=== PATIENT | female | born 1950 | race Caucasian/White ===

== ENCOUNTER → 2016-11-14 | Outpatient (CLI) | payer BC, OTHER ==
--- NOTE | 2016-11-14 10:34 | REPMRS ---
Patient History The patient states she had a clinical breast exam in Patient is postmenopausal and is nulliparous. Family history of prostate cancer in father at age 50 or over and prostate cancer in paternal grandfather. Digital Woman Screen Mammo: November 14, 2016 - Exam #: [id number] Bilateral CC and MLO view(s) were taken. Technologist: Kate Cohen, Technologist Prior study comparison: November 16, 2015, digital woman screen mammo performed at [facility]. November 10, 2014, digital woman screen mammo performed at [facility]. FINDINGS: The breast tissue is heterogeneously dense. This may lower the sensitivity of mammography. There has been no change in the appearance of the mammogram from the prior studies. There is a moderate amount of residual fibroglandular tissue which is fairly symmetric. There is no interval development of dominant mass, areas of architectural distortion, or clustered microcalcification typical of malignancy. ASSESSMENT: BI-RADS/ACR category 1 mammogram. Negative. Recommendation Routine screening mammogram in 1 year (for women over age 40). This mammogram was interpreted with the aid of an FDA-approved computer-aided dectection system. Electronically Signed By: Arsenio Blackwood MD 11/14/16 [id number]
== END ==
LOC: M WHC 08:50
PROVIDERS: ATTEND Nurse Practitioner Family
DX: Z12.31 Encounter for screening mammogram for malignant neoplasm of breast (principal); Z78.0 Asymptomatic menopausal state; Z80.42 Family history of malignant neoplasm of prostate

== ENCOUNTER → 2018-03-13 | Outpatient (CLI) | payer OTHER | LOC: M WHC 07:51 | DX: Z12.31 Encounter for screening mammogram for malignant neoplasm of breast (principal); Z78.0 Asymptomatic menopausal state; Z92.89 Personal history of other medical treatment | CPT/HCPCS: 77067 ==

== ENCOUNTER → 2019-03-15 | Outpatient (CLI) | payer MEDICARE, OTHER ==
--- NOTE | 2019-03-15 15:50 | REPMRS ---
Patient History The patient states she had a clinical breast exam in 03/2019. Patient is postmenopausal and is nulliparous. Family history of prostate cancer at age 50 or over in father, prostate cancer in paternal grandfather, pancreatic cancer in paternal aunt, pancreatic cancer in paternal aunt. No Hormone Replacement Therapy Digital Woman Screen Mammo: March 15, 2019 - Exam #: [id number] Bilateral CC and MLO view(s) were taken. Technologist: Mady Mcfarland, Technologist Prior study comparison: March 13, 2018, bilateral digital woman screen mammo performed at [facility]. November 14, 2016, digital woman screen mammo performed at [facility]. November 16, 2015, digital woman screen mammo performed at [facility]. FINDINGS: The breast tissue is heterogeneously dense. This may lower the sensitivity of mammography. There is a moderate amount of heterogeneously dense fibroglandular tissue which is fairly symmetric. There is no interval development of dominant mass, architectural distortion, or grouped microcalcification typical of malignancy. There has been no change in the appearance of the mammogram from the prior studies. 3-D tomosynthesis shows no additional findings. Assessment: BI-RADS/ACR category 1 mammogram. Negative Mammogram. Recommendation Routine screening mammogram of both breasts in 1 year (for women over age 40). This patient's Lifetime Breast Cancer RIsk is estimated at 5.7 %. This mammogram was interpreted with the aid of an FDA-approved computer-aided dectection system. Electronically Signed By: Carmelo Deshpande MD 03/15/19 [id number]
== END ==
LOC: M WHC 11:17
PROVIDERS: ATTEND Nurse Practitioner Family
DX: Z01.419 Encounter for gynecological examination (general) (routine) without abnormal findings (principal); Z12.31 Encounter for screening mammogram for malignant neoplasm of breast; Z78.0 Asymptomatic menopausal state; Z80.42 Family history of malignant neoplasm of prostate
CPT/HCPCS: 77063; 77067; G0101

== ENCOUNTER → 2020-05-10 | Outpatient (CLI) | payer MEDICARE ==
--- NOTE | 2020-05-10 09:59 | REPMRS ---
Patient History The patient states she had a clinical breast exam in May 2020 .Family history of prostate cancer at age 50 or over in father, prostate cancer in paternal grandfather, pancreatic cancer in paternal aunt, pancreatic cancer in paternal aunt. No Hormone Replacement Therapy 3D TOMOSYNTHESIS WAS PERFORMED. The Perfecto Koroma lifetime risk for breast cancer is 5.4%. Volpara breast density b. Digital Woman Screen Mammo: May 10, 2020 - Exam #: [id number] Bilateral CC and MLO view(s) were taken. Technologist: Kylie Mcgill, Technologist Prior study comparison: March 15, 2019, bilateral digital woman screen mammo performed at [facility]. March 13, 2018, bilateral digital woman screen mammo performed at [facility]. FINDINGS: The breast tissue is heterogeneously dense. This may lower the sensitivity of mammography. There has been no change in the appearance of the mammogram from the prior studies. There is a moderate amount of residual fibroglandular tissue which is fairly symmetric. There is no interval development of dominant mass, areas of architectural distortion, or clustered microcalcification typical of malignancy. Assessment: BI-RADS/ACR category 1 mammogram. Negative Mammogram. Recommendation Routine screening mammogram in 1 year (for women over age 40). This mammogram was interpreted with the aid of an FDA-approved computer-aided dectection system. Electronically Signed By: Arsenio Blackwood MD 05/10/20 [id number]
== END ==
LOC: M WHC 08:48
PROVIDERS: ATTEND Nurse Practitioner Family
DX: Z12.31 Encounter for screening mammogram for malignant neoplasm of breast (principal); Z80.42 Family history of malignant neoplasm of prostate

== ENCOUNTER → 2021-07-25 | Outpatient (CLI) | payer MEDICARE | LOC: M WHC 09:09 | PROVIDERS: ATTEND Advanced Practice Midwife | DX: Z12.31 Encounter for screening mammogram for malignant neoplasm of breast (principal) ==